=== PATIENT | female | born 1960 | race Caucasian/White ===

== ENCOUNTER 2016-06-21 11:45 | Observation (INO) | payer OTHER ==
[2016-06-21 12:08] VITALS: BMI 24.4
[2016-06-21] MEDS ORDERED: ACETAMINOPHEN 1000 MG/100 ML VIAL (NON FORMULARY) IVPB ONE (13:23)
--- NOTE | 2016-06-21 13:28 | PDOC ---
History of Present Illness - General History Source: Patient, Old Records Exam Limitations: No Limitations - History of Present Illness Initial Comments: 06/21/16 15:32 The patient is a 56 year old female brought via EMS, with a significant past medical history of epilepsy, HLD and gastritis, who presents to the emergency department after a witnessed seizure today. She states that she had a seizure this morning and went to see her Neurologist. While at the office she had another seizure which was witnessed. She was sent in for evaluation via EMS. On presentation the patient has post-itcal signs and complaints of headache and chest pain. She describes her headache as ranging from moderate to severe, without radiation or modifying factors. She describes her chest pain as mild, without radiation or modifying factors. She notes that one her of medications was recently increased but does not remember the name of the medication. She denies recent prior head injury. The patient denies shortness of breath and dizziness. Denies fever, chills, nausea, vomit, diarrhea and constipation. Allergies: None Past surgical history: None reported Social history: No alcohol, tobacco or drug use reported PMD - Dr. Eden Quiroz Neurologist - Dr. Roa <Andrew Solis - Last Filed: 06/21/16 16:08> <Dayna Howard - Last Filed: 06/22/16 09:06> - General Chief Complaint: Seizure Stated Complaint: SEIZURE Time Seen by Provider: 06/21/16 13:06 Past History <Andrew Solis - Last Filed: 06/21/16 16:08> - Past Medical History Anemia: No Asthma: No Cancer: No Cardiac Disorders: No CVA: No COPD: No CHF: No Dementia: No Diabetes: No GI Disorders: Yes (GASTRITIS) Disorders: No HTN: No Hypercholesterolemia: Yes Liver Disease: No Suicide Attempt (Hx): No Seizures: Yes (EPILEPSY; seizures 3 x per week; compliant on meds) Thyroid Disease: No - Immunization History Immunization Up to Date: Yes - Psycho/Social/Smoking Cessation Hx Anxiety: Yes Suicidal Ideation: No Smoking Status: No Smoking History: Unknown if ever smoked Have you smoked in the past 12 months: No Number of Cigarettes Smoked Daily: 0 Information on smoking cessation initiated: No Hx Alcohol Use: No Drug/Substance Use Hx: No Substance Use Type: None <Dayna Howard - Last Filed: 06/22/16 09:06> - Past Medical History Allergies/Adverse Reactions: Allergies Allergy/AdvReac Type Severity Reaction Status Date / Time No Known Allergies Allergy Verified 06/21/16 12:02 Home Medications: Ambulatory Orders Omeprazole [Prilosec] 40 mg PO DAILY 01/31/15 Simvastatin 10 mg PO HS 01/31/15 Levetiracetam [Keppra -] 1,500 mg PO BID #60 tablet 02/05/15 Oxcarbazepine [Trileptal -] 150 mg PO BID #60 tablet 02/05/15 Topiramate [Topamax] 150 mg PO BID #60 tablet 02/05/15 Oxycodone HCl/Acetaminophen [Percocet 5-325 mg Tablet] 1 tab PO Q6H PRN #10 tablet MDD 4 05/30/15 Lamotrigine [Lamictal] 200 mg PO BID 06/21/16 Review of Systems - Review of Systems Able to Perform ROS?: Yes Comments:: 06/21/16 13:30 12 point review of systems is as per history of present illness and otherwise negative ROS All Other Systems: Reviewed and Negative <Andrew Solis - Last Filed: 06/21/16 16:08> *Physical Exam - Vital Signs Last Vital Signs Temp Pulse Resp BP Pulse Ox 98.3 F 72 18 132/79 97 06/21/16 12:53 06/21/16 12:53 06/21/16 12:53 06/21/16 12:53 06/21/16 12:53 <Andrew Solis - Last Filed: 06/21/16 16:08> - Vital Signs Last Vital Signs Temp Pulse Resp BP Pulse Ox 98.3 F 72 18 132/79 97 06/21/16 12:53 06/21/16 12:53 06/21/16 12:53 06/21/16 12:53 06/21/16 12:53 - Physical Exam Comments: 06/21/16 13:24 Physical exam Last Vital Signs Temp Pulse Resp BP Pulse Ox 98.3 F 72 18 132/79 97 06/21/16 12:53 06/21/16 12:53 06/21/16 12:53 06/21/16 12:53 06/21/16 12:53 GENERAL: The patient is awake, alert, and answering questions Seems still a little post ictal HEAD: Normal with no signs of trauma. EYES: Pupils equal, round and reactive to light, extraocular movements intact, sclera anicteric, conjunctiva are normal. ENT: Moist mucous membranes. NECK: Normal range of motion, supple LUNGS: Breath sounds equal, clear to auscultation bilaterally. No wheezes, and no crackles. HEART: Regular rate and rhythm, normal S1 and S2 without murmur, rub or gallop. ABDOMEN: Soft, nontender, normoactive bowel sounds. No guarding, no rebound. No masses appreciated. EXTREMITIES: Normal range of motion, no edema. No clubbing or cyanosis. No cords, erythema, or tenderness. NEUROLOGICAL: Subtle facial asymmetry is noted, but otherwise cranial nerves seem intact Motor is equal in the upper and lower extremities, Patient seems still a little post ictal PSYCH: Normal mood, normal affect. SKIN: Warm, Dry, <Dayna Howard - Last Filed: 06/22/16 09:06> ED Treatment Course - LABORATORY CBC & Chemistry Diagram: 06/21/16 15:25 06/21/16 13:30 - RADIOLOGY Radiograph Interpretation: 06/21/16 14:46 Chest X-Ray Reviewed by: Dr. Clint Lopez Impression: No acute pathology Head CT Reviewed by: Dr. Corby Mahmood Impression: No significant interval change or acute intracranial pathology is identified. <Andrew Solis - Last Filed: 06/21/16 16:08> - LABORATORY CBC & Chemistry Diagram: 06/22/16 05:35 06/22/16 05:35 - RADIOLOGY Radiology Studies Ordered: Category Date Time Status HEAD CT WITHOUT CONTRAST [CT] Stat CT Scan 06/21/16 13:22 Ordered CHEST X-RAY PORTABLE* [RAD] Stat Radiology 06/21/16 13:22 Ordered <Dayna Howard - Last Filed: 06/22/16 09:06> Medical Decision Making - Medical Decision Making 06/21/16 16:26 Laboratory Results - last 24 hr 06/21/16 06/21/16 06/21/16 13:30 13:30 15:25 WBC Cancelled 4.9 Corrected WBC (auto) Cancelled RBC Cancelled 4.34 Hgb Cancelled 13.4 Hct Cancelled 40.4 MCV Cancelled 93.1 MCHC Cancelled 33.1 RDW Cancelled 13.4 Plt Count Cancelled 157 D MPV Cancelled 9.2 Neutrophils % 38.3 L D Lymphocytes % 47.4 H D Monocytes % 11.2 H Eosinophils % 2.3 Basophils % 0.8 Differential Comment Cancelled Platelet Estimate Cancelled Platelet Comment Cancelled RBC Morphology Cancelled Sodium 141 Potassium 3.9 Chloride 105 Carbon Dioxide 22 Anion Gap 14 BUN 15 D Creatinine 0.7 Creat Clearance w eGFR > 60 Random Glucose 66 L D Calcium 8.8 Magnesium 2.5 H Total Bilirubin 0.3 AST 42 H D ALT 33 D Alkaline Phosphatase 118 H Troponin I < 0.02 Total Protein 7.[address] scan of the head without- NAD Chest x-ray- NAD 06/21/16 16:56 EKG Normal sinus rhythm 57, normal axis Normal AV and IV conduction time Normal EKG Case discussed with hospitalist-will place in observation Impression-seizures, chest pain episode Back to baseline at this time <Dayna Howard - Last Filed: 06/22/16 09:06> *DC/Admit/Observation/Transfer - Attestations Scribe Attestion: 06/21/16 13:30 Documentation prepared by Andrew Solis, acting as mobile paramedical examiner for Dayna Howard MD <Andrew Solis - Last Filed: 06/21/16 16:08> - Discharge Dispostion Admit: Yes <Dayna Howard - Last Filed: 06/22/16 09:06> Diagnosis at time of Disposition: Seizure disorder, Seizures, Chest pain
[2016-06-21] MEDS ORDERED: ACETAMINOPHEN INJECTION 100 ML IVPB ONE (13:34)
[2016-06-21 15:04] LABS: ALBUMIN 4.2 g/dl (3.4-5.0); ANION GAP 14 (8-16); BILIRUBIN,TOTAL 0.3 mg/dL (0.2-1.0); CALCIUM 8.8 mg/dL (8.5-10.1); CO2 22 mmol/L (21-32); CREATININE 0.7 mg/dL (0.55-1.02); GLUCOSE,RANDOM 66 mg/dL (74-106); MAGNESIUM 2.5 mg/dL (1.8-2.4); SGPT/ALT 33 U/L (12-78); TOT PROT 7.7 g/dl (6.4-8.2)
[2016-06-21 15:06] LABS: ALK PHOS 118 U/L (45-117); TROPONIN I < 0.02 ng/ml (0.00-0.05)
[2016-06-21 15:19] LABS: SGOT/AST 42 U/L (15-37)
[2016-06-21 15:35] LABS: BASOPHIL 0.8 % (0-2.0); EOSINOPHIL 2.3 % (0-4.5); MCH 30.8 pg (25.7-33.7); MCHC 33.1 g/dl (32.0-36.0); MEAN CELL VOLUME 93.1 fl (80-96); MEAN PLT VOLUME 9.2 fl (7.5-11.1); NEUTROPHILS 38.3 % (42.8-82.8); PLATELET COUNT 157 K/MM3 (134-434); RDW 13.4 % (11.6-15.6); WHITE BLOOD COUNT 4.9 K/mm3 (4.0-10.0)
--- NOTE | 2016-06-21 17:25 | EKG ---
Test Reason : Blood Pressure : / mmHG Vent. Rate : 057 BPM Atrial Rate : 057 BPM P-R Int : 136 ms QRS Dur : 082 ms QT Int : 434 ms P-R-T Axes : 076 067 072 degrees QTc Int : 422 ms SINUS BRADYCARDIA OTHERWISE NORMAL ECG WHEN COMPARED WITH ECG OF 29-MAY-2015 21:34, NO SIGNIFICANT CHANGE WAS FOUND Confirmed by VALENCIA ESPINOSA MD ([id number]) on 06/21/2016 5:25:19 PM Referred By: Confirmed By:VALENCIA ESPINOSA MD
--- NOTE | 2016-06-21 17:48 | HP ---
CHIEF COMPLAINT: Convulsions today HISTORY OF PRESENT ILLNESS: Tanslation was done by the nurse in ED. The patient is a 56 year old ghanaian speaking female was brought via EMS, with a significant past medical history of epilepsy since her childhood, HLD and gastritis, who presents to the emergency department after having a witnessed seizure in her neurologist office today. Stated that she experiences seizure every other day 2-3 times per day . She was sent in for evaluation via EMS. Also stated that recently she has been having seizure post ictally she will develop chest pain and headache. She gets throbbing headache post-ictally. Denies having any aura. She also stated that she takes her meds religiously. The patient denies shortness of breath and dizziness. Denies fever, chills, nausea, vomit, diarrhea and constipation. Allergies: None Past surgical history: None reported Social history: No alcohol, tobacco or drug use reported PMD - Dr. Eden Quiroz Neurologist - Dr. Roa PCP: Eden Quiroz Family History: No family hx of any disease Allergies No Known Allergies Allergy HOME MEDICATIONS: Home Medications Medication Instructions Recorded Omeprazole [Prilosec] 40 mg PO DAILY 01/31/15 Simvastatin 10 mg PO HS 01/31/15 Levetiracetam [Keppra -] 1,500 mg PO BID #60 tablet 02/05/15 Oxcarbazepine [Trileptal -] 150 mg PO BID #60 tablet 02/05/15 Topiramate [Topamax] 150 mg PO BID #60 tablet 02/05/15 Oxycodone HCl/Acetaminophen 1 tab PO Q6H PRN #10 tablet MDD 4 05/30/15 [Percocet 5-325 mg Tablet] Acetaminophen [Tylenol] 650 mg PO Q4H PRN #20 tablet 03/18/16 Mag Hydrox/Al Hydrox/Simeth 30 ml PO Q6H PRN #1 bottle 03/18/16 [Mylanta Suspension -] Ondansetron HCl [Zofran] 4 mg PO Q6H PRN #12 tablet 03/18/16 Ranitidine HCl [Zantac] 150 mg PO BID PRN #14 tablet 03/18/16 REVIEW OF SYSTEMS CONSTITUTIONAL: Absent: fever, chills, diaphoresis, generalized weakness, malaise, loss of appetite, weight change HEENT: Absent: rhinorrhea, nasal congestion, throat pain, throat swelling, difficulty swallowing, mouth swelling, ear pain, eye pain, visual changes CARDIOVASCULAR: Absent: chest pain, syncope, palpitations, irregular heart rate , lightheadedness, peripheral edema RESPIRATORY: Absent: cough, shortness of breath, dyspnea with exertion, orthopnea, wheezing, stridor, hemoptysis GASTROINTESTINAL:Absent: abdominal pain, abdominal distension, nausea, vomiting , diarrhea, constipation, melena, hematochezia GENITOURINARY: Absent: dysuria, frequency, urgency, hesitancy, hematuria, flank pain, genital pain MUSCULOSKELETAL: Absent: myalgia, arthralgia, joint swelling, back pain, neck pain SKIN: Absent: rash, itching, pallor HEMATOLOGIC/IMMUNOLOGIC: Absent: easy bleeding, easy bruising, lymphadenopathy, frequent infections ENDOCRINE:Absent: unexplained weight gain, unexplained weight loss, heat intolerance, cold intolerance NEUROLOGIC: Absent: headache, focal weakness or paresthesias, dizziness, unsteady gait, seizure, mental status changes, bladder or bowel incontinence PSYCHIATRIC: Absent: anxiety, depression, suicidal or homicidal ideation, hallucinations. PHYSICAL EXAMINATION GENERAL: Awake, alert, and fully oriented, in no acute distress. HEAD: Normal with no signs of trauma. EYES: Pupils equal, round and reactive to light, extraocular movements intact, sclera anicteric, conjunctiva clear. No lid lag. EARS, NOSE, THROAT: Ears normal, nares patent, oropharynx clear without exudates. Moist mucous membranes. NECK: Normal range of motion, supple without lymphadenopathy, JVD, or masses. LUNGS: Breath sounds equal, clear to auscultation bilaterally. No wheezes, and no crackles. No accessory muscle use. HEART: Regular rate and rhythm, normal S1 and S2 without murmur, rub or gallop. ABDOMEN: Soft, nontender, not distended, normoactive bowel sounds, no guarding, no rebound, no masses. No hepatomegaly or splenomegaly. MUSCULOSKELETAL: Normal range of motion at all joints. No bony deformities or tenderness. No CVA tenderness. UPPER EXTREMITIES: 2+ pulses, warm, well-perfused. No cyanosis. No clubbing. No peripheral edema. LOWER EXTREMITIES: 2+ pulses, warm, well-perfused. No calf tenderness. No peripheral edema. NEUROLOGICAL: Cranial nerves II-XII intact. Normal speech. Normal gait. PSYCHIATRIC: Cooperative. Good eye contact. Appropriate mood and affect. SKIN: Warm, dry, normal turgor, no rashes or lesions noted, normal capillary refill. CBCD WBC 4.9 K/mm3 (4.0-10.0) 06/21/16 15:25 RBC 4.34 M/mm3 (3.60-5.2) 06/21/16 15:25 Hgb 13.4 GM/dL (10.7-15.3) 06/21/16 15:25 Hct 40.4 % (32.4-45.2) 06/21/16 15:25 MCV 93.1 fl (80-96) 06/21/16 15:25 MCHC 33.1 g/dl (32.0-36.0) 06/21/16 15:25 RDW 13.4 % (11.6-15.6) 06/21/16 15:25 Plt Count 157 K/MM3 (134-434) D 06/21/16 15:25 MPV 9.2 fl (7.5-11.1) 06/21/16 15:25 CMP Sodium 141 mmol/L (136-145) 06/21/16 13:30 Potassium 3.9 mmol/L (3.5-5.1) 06/21/16 13:30 Chloride 105 mmol/L (98-107) 06/21/16 13:30 Carbon Dioxide 22 mmol/L (21-32) 06/21/16 13:30 Anion Gap 14 (8-16) 06/21/16 13:30 BUN 15 mg/dL (7-18) D 06/21/16 13:30 Creatinine 0.7 mg/dL (0.55-1.02) 06/21/16 13:30 Creat Clearance w eGFR > 60 (>60) 06/21/16 13:30 Random Glucose 66 mg/dL (74-106) L D 06/21/16 13:30 Calcium 8.8 mg/dL (8.5-10.1) 06/21/16 13:30 Total Bilirubin 0.3 mg/dL (0.2-1.0) 06/21/16 13:30 AST 42 U/L (15-37) H D 06/21/16 13:30 ALT 33 U/L (12-78) D 06/21/16 13:30 Alkaline Phosphatase 118 U/L (45-117) H 06/21/16 13:30 Total Protein 7.7 g/dl (6.4-8.2) 06/21/16 13:30 Albumin 4.2 g/dl (3.4-5.0) 06/21/16 13:30 CARDIAC ENZYMES Creatine Kinase 142 IU/L (26-192) 06/21/16 13:30 Troponin I < 0.02 ng/ml (0.00-0.05) 06/21/16 13:30 Home Medications Medication Instructions Recorded Omeprazole [Prilosec] 40 mg PO DAILY 01/31/15 Simvastatin 10 mg PO HS 01/31/15 Levetiracetam [Keppra -] 1,500 mg PO BID #60 tablet 02/05/15 Oxcarbazepine [Trileptal -] 150 mg PO BID #60 tablet 02/05/15 Topiramate [Topamax] 150 mg PO BID #60 tablet 02/05/15 Oxycodone HCl/Acetaminophen 1 tab PO Q6H PRN #10 tablet MDD 4 05/30/15 [Percocet 5-325 mg Tablet] Acetaminophen [Tylenol] 650 mg PO Q4H PRN #20 tablet 03/18/16 Mag Hydrox/Al Hydrox/Simeth 30 ml PO Q6H PRN #1 bottle 03/18/16 [Mylanta Suspension -] Ondansetron HCl [Zofran] 4 mg PO Q6H PRN #12 tablet 03/18/16 Ranitidine HCl [Zantac] 150 mg PO BID PRN #14 tablet 03/18/16 Abnormal Lab Results 06/21/16 06/21/16 13:30 15:25 Neutrophils % 38.3 L D Lymphocytes % 47.4 H D Monocytes % 11.2 H Random Glucose 66 L D Magnesium 2.5 H AST 42 H D Alkaline Phosphatase 118 H ASSESSMENT/PLAN: The patient is a 56 year old female brought via EMS, with a significant past medical history of epilepsy, HLD and gastritis, who presents to the emergency department after a witnessed seizure today #Acute seizure activity with hx of convulsions for consult continue her meds. Discussed with he thinks that this lady has a psuedoseizure and EEG can be doen as an outpatient since there is no one reading in the office. Increased the dose of Topimax to 20mg po bid. # Throbbing Headache tylenol prn # Chest pain ,EKG in am , CEq8, will place her in tele. # Hx of Gerd zantac po # hx of HLD DVT px: SCds while in bed Visit type - Emergency Visit Emergency Visit: Yes ED Registration Date: 06/21/16 Care time: The patient presented to the Emergency Department on the above date and was hospitalized for further evaluation of their emergent condition. - New Patient This patient is new to me today: Yes Date on this admission: 06/21/16 - Critical Care Critical Care patient: No
[2016-06-21] MEDS ORDERED: RANITIDINE HCL 150 MG TABLET (FP) PO PRN (19:22)
[2016-06-21] MEDS: lamoTRIgine 100 MG TABLET (FP) PO SCH (21:46)
[2016-06-21] MEDS: OXcarbazepine 150 MG TABLET (UD) PO SCH (21:46)
[2016-06-21] MEDS: levETIRAcetam 500 MG TABLET (FP) PO SCH (21:46)
[2016-06-21] MEDS: TOPIRAMATE 200 MG TABLET (FP) PO SCH (21:46)
[2016-06-21] MEDS ORDERED: TOPIRAMATE 150 MG PO SCH (22:00)
[2016-06-22 06:48] LABS: BASOPHIL 0.8 % (0-2.0); EOSINOPHIL 2.8 % (0-4.5); MCH 30.7 pg (25.7-33.7); MCHC 32.9 g/dl (32.0-36.0); MEAN CELL VOLUME 93.3 fl (80-96); MEAN PLT VOLUME 9.5 fl (7.5-11.1); NEUTROPHILS 43.2 % (42.8-82.8); PLATELET COUNT 158 K/MM3 (134-434); RDW 13.5 % (11.6-15.6); WHITE BLOOD COUNT 4.7 K/mm3 (4.0-10.0)
[2016-06-22 06:49] LABS: INR 1.04 (0.82-1.09); PROTHROMBIN TIME (PATIENT) 11.4 SEC (9.98-11.88)
[2016-06-22 07:04] LABS: ALBUMIN 3.7 g/dl (3.4-5.0); ANION GAP 10 (8-16); BILIRUBIN,TOTAL 0.5 mg/dL (0.2-1.0); CO2 25 mmol/L (21-32); CREATININE 0.8 mg/dL (0.55-1.02); GLUCOSE,RANDOM 74 mg/dL (74-106); MAGNESIUM 2.4 mg/dL (1.8-2.4); PHOSPHOROUS 4.7 mg/dL (2.5-4.9); SGOT/AST 27 U/L (15-37); SGPT/ALT 28 U/L (12-78); TOT PROT 6.8 g/dl (6.4-8.2)
[2016-06-22 07:05] LABS: ALK PHOS 103 U/L (45-117)
[2016-06-22] MEDS ORDERED: PT OWN MED DRAWER 7, Y5N ONE (09:07)
--- NOTE | 2016-06-22 10:02 | CONSULT ---
Consult - text type - Consultation Consultation Note: Neurology The patient is a 56 year old female brought via EMS, with a significant past medical history of epilepsy, HLD and gastritis, who presents to the emergency department after a witnessed seizure yesterday. The patient sees Dr. Garcia and reportedly had seizure while at the office. The patient has challenges with medication compliance and also mood disturbances. She states that no medications ever work for her despite being on four antiepileptics. Today, she reports being at baseline. No events overnight. Her topamax was increased to 200mg twice daily from 150mg twice a day. She had recent VEEG I believe. She would like to be discharged. We discussed importance of medication compliance as well as address mood symptoms. Active Medications Lamotrigine (Lamictal -) 200 mg PO BID [facility] Last Admin: 06/21/16 21:46 Dose: 200 mg Levetiracetam (Keppra -) 1,500 mg PO BID [facility] Last Admin: 06/21/16 21:46 Dose: 1,500 mg Oxcarbazepine (Trileptal -) 150 mg PO BID [facility] Last Admin: 06/21/16 21:46 Dose: 150 mg Ranitidine HCl (Zantac -) 150 mg PO BID PRN PRN Reason: Gastritis Topiramate (Topamax -) 200 mg PO BID [facility] Last Admin: 06/21/16 21:46 Dose: 200 mg *Physical Exam Vital Signs Temperature 97.7 F 06/22/16 06:00 Pulse Rate 68 06/22/16 06:00 Respiratory Rate 20 06/22/16 06:00 Blood Pressure 99/59 06/22/16 06:00 O2 Sat by Pulse Oximetry (%) 98 06/22/16 04:00 GENERAL: The patient is awake, alert, and answering questions Seems still a little post ictal HEAD: Normal with no signs of trauma. EYES: Pupils equal, round and reactive to light, extraocular movements intact, sclera anicteric, conjunctiva are normal. ENT: Moist mucous membranes. NECK: Normal range of motion, supple LUNGS: Breath sounds equal, clear to auscultation bilaterally. No wheezes, and no crackles. HEART: Regular rate and rhythm, normal S1 and S2 without murmur, rub or gallop. ABDOMEN: Soft, nontender, normoactive bowel sounds. No guarding, no rebound. No masses appreciated. EXTREMITIES: Normal range of motion, no edema. No clubbing or cyanosis. No cords, erythema, or tenderness. NEUROLOGICAL: Cranial nerves intact Motor is equal in the upper and lower extremities, Patient seems still a little post ictal PSYCH: Normal mood, normal affect. Chest X-Ray Reviewed by: Dr. Clint Lopez Impression: No acute pathology Head CT Reviewed by: Dr. Corby Mahmood Impression: No significant interval change or acute intracranial pathology is identified. CBC,CMP WBC 4.7 K/mm3 (4.0-10.0) 06/22/16 05:35 Corrected WBC (auto) Cancelled 06/21/16 13:30 RBC 4.43 M/mm3 (3.60-5.2) 06/22/16 05:35 Hgb 13.6 GM/dL (10.7-15.3) 06/22/16 05:35 Hct 41.3 % (32.4-45.2) 06/22/16 05:35 MCV 93.3 fl (80-96) 06/22/16 05:35 MCHC 32.9 g/dl (32.0-36.0) 06/22/16 05:35 RDW 13.5 % (11.6-15.6) 06/22/16 05:35 Plt Count 158 K/MM3 (134-434) 06/22/16 05:35 MPV 9.5 fl (7.5-11.1) 06/22/16 05:35 Neutrophils % 43.2 % (42.8-82.8) 06/22/16 05:35 Lymphocytes % 42.3 % (8-40) H 06/22/16 05:35 Monocytes % 10.9 % (3.8-10.2) H 06/22/16 05:35 Eosinophils % 2.8 % (0-4.5) 06/22/16 05:35 Basophils % 0.8 % (0-2.0) 06/22/16 05:35 Differential Comment Cancelled 06/21/16 13:30 Platelet Estimate Cancelled 06/21/16 13:30 Platelet Comment Cancelled 06/21/16 13:30 Platelet Comment Cancelled 06/21/16 13:30 RBC Morphology Cancelled 06/21/16 13:30 Sodium 142 mmol/L (136-145) 06/22/16 05:35 Potassium 3.6 mmol/L (3.5-5.1) 06/22/16 05:35 Chloride 107 mmol/L (98-107) 06/22/16 05:35 Carbon Dioxide 25 mmol/L (21-32) 06/22/16 05:35 Anion Gap 10 (8-16) 06/22/16 05:35 BUN 13 mg/dL (7-18) 06/22/16 05:35 Creatinine 0.8 mg/dL (0.55-1.02) 06/22/16 05:35 Creat Clearance w eGFR > 60 (>60) 06/22/16 05:35 Random Glucose 74 mg/dL (74-106) 06/22/16 05:35 Calcium 9.0 mg/dL (8.5-10.1) 06/22/16 05:35 Phosphorus 4.7 mg/dL (2.5-4.9) D 06/22/16 05:35 Magnesium 2.4 mg/dL (1.8-2.4) 06/22/16 05:35 Total Bilirubin 0.5 mg/dL (0.2-1.0) D 06/22/16 05:35 AST 27 U/L (15-37) D 06/22/16 05:35 ALT 28 U/L (12-78) 06/22/16 05:35 Alkaline Phosphatase 103 U/L (45-117) 06/22/16 05:35 Creatine Kinase 142 IU/L (26-192) 06/21/16 13:30 Troponin I < 0.02 ng/ml (0.00-0.05) 06/22/16 02:00 Total Protein 6.8 g/dl (6.4-8.2) 06/22/16 05:35 Albumin 3.7 g/dl (3.4-5.0) 06/22/16 05:35 Medical Decision Making 56 year old female brought via EMS, with a significant past medical history of epilepsy, HLD and gastritis, who presents to the emergency department after a witnessed seizure yesterday. The patient sees Dr. Garcia and reportedly had seizure while at the office. The patient has challenges with medication compliance and also mood disturbances. She states that no medications ever work for her despite being on four antiepileptics. Today, she reports being at baseline. No events overnight. Her topamax was increased to 200mg twice daily from 150mg twice a day. She had recent VEEG I believe. She would like to be discharged. We discussed importance of medication compliance as well as address mood symptoms. Neurologically stable overnight and today. Seizure precautions and medication compliance discussed. For discharge today.
[2016-06-22] MEDS: TOPIRAMATE 200 MG TABLET (FP) PO SCH (10:36)
[2016-06-22] MEDS: OXcarbazepine 150 MG TABLET (UD) PO SCH (10:36)
[2016-06-22] MEDS: levETIRAcetam 500 MG TABLET (FP) PO SCH (10:37)
[2016-06-22] MEDS: lamoTRIgine 100 MG TABLET (FP) PO SCH (10:37)
[2016-06-22 13:22] VITALS: BP 123/70; PULSE 92; TEMP 98
--- NOTE | 2016-06-22 14:17 | PN ---
Teaching Attending Note Name of Resident: Ankit Pearce ATTENDING PHYSICIAN STATEMENT I saw and evaluated the patient. I reviewed the resident's note and discussed the case with the resident. I agree with the resident's findings and plan as documented. SUBJECTIVE: No fever or chills, feels tired, no weakness or numbness , wants to go home as we are not doing anything to help her. OBJECTIVE: NAD. LUngs : CTAB ext : no edema CV: RRR. no MRG Neuro : EOMI, no facial droop, nl facial sensation . strength 4/5 in upper ext , and LLE . not able to obtain strength on RLE due to pain ( chronic back and knee pain ) . reflexes 2+ L knee jerk, and 2+ biceps b/l ASSESSMENT AND PLAN: 56 y/o lady with h.o Seizures who presented after a seizure activity in neurologist office . 1- seizure disorder, not compliant with her meds cont increased topiramate dose cont rest of her home meds 2- dc home today f/u with neuro and PCP
--- NOTE | 2016-06-22 14:25 | DS ---
Physical Exam: SUBJECTIVE: Patient seen and examined at bedside wants to go home OBJECTIVE: Vital Signs Period Temp Pulse Resp BP Sys/Rabago Pulse Ox Last 24 Hr 97.7 F-98.5 F 60-92 17-20 95-123/57-76 98-100 PHYSICAL EXAM GENERAL: The patient is awake, alert, in no acute distress. HEAD: Normal with no signs of trauma. Eyes: PERRLA EOMI NECK: Supple LUNGS: Breath sounds equal, clear to auscultation bilaterally. HEART: Regular rate and rhythm, S1, S2 without murmur, ABDOMEN: Soft, nontender, nondistended, normoactive bowel sounds EXTREMITIES: warm, well-perfused, no edema. NEUROLOGICAL: Cranial nerves II through XII grossly intact. Normal speech. no facial droop sensation WNL 4/5 strength in upper extremities 5/5 strength in lower extremities biceps and knee jerk 2+ LABS Laboratory Results - last 24 hr 06/21/16 06/22/16 06/22/16 21:00 02:00 05:35 WBC 4.7 RBC 4.43 Hgb 13.6 Hct 41.3 MCV 93.3 MCHC 32.9 RDW 13.5 Plt Count 158 MPV 9.5 Neutrophils % 43.2 Lymphocytes % 42.3 H Monocytes % 10.9 H Eosinophils % 2.8 Basophils % 0.8 INR Sodium Potassium Chloride Carbon Dioxide Anion Gap BUN Creatinine Creat Clearance w eGFR Random Glucose Calcium Phosphorus Magnesium Total Bilirubin AST ALT Alkaline Phosphatase Troponin I < 0.02 < 0.02 Total Protein Albumin 06/22/16 06/22/16 05:35 05:35 WBC RBC Hgb Hct MCV MCHC RDW Plt Count MPV Neutrophils % Lymphocytes % Monocytes % Eosinophils % Basophils % INR 1.04 Sodium 142 Potassium 3.6 Chloride 107 Carbon Dioxide 25 Anion Gap 10 BUN 13 Creatinine 0.8 Creat Clearance w eGFR > 60 Random Glucose 74 Calcium 9.0 Phosphorus 4.7 D Magnesium 2.4 Total Bilirubin 0.5 D AST 27 D ALT 28 Alkaline Phosphatase 103 Troponin I Total Protein 6.8 Albumin 3.7 HOSPITAL COURSE: Date of Admission:06/21/16 Date of Discharge: 06/22/16 56F with history of seizure disorder presented to her neurologists office after having a seizure at home and them went to the to the ED after having a seizure at the neurologists office as well. Patient was worked up with a head CT and cardiac enzymes which were all negative. She did not have any neurological deficits. Seen by neurology and medications adjusted. Cleared by neurology for discharge with follow up. Minutes to complete discharge: 45 Discharge Summary Reason For Visit: SEIZURE DISORDER/SEIZURE/CHEST PAIN Condition: Improved - Instructions Diet, Activity, Other Instructions: follow with [facility] in week please follow with Dr. ferguson , from neurology. report any new symptoms like weakens, numbness , loss of consciousness or seizures to your doctor follow the new dosing of your medications ( topamax dose was increased to 200 mg twice a day instead of 150 mg twice a day ) , new prescription was sent to your pharmacy Referrals: Jono Ferguson MD [Staff Physician] - 1 Week Disposition: HOME - Home Medications Comprehensive Discharge Medication List: Ambulatory Orders Omeprazole [Prilosec] 40 mg PO DAILY 01/31/15 Simvastatin 10 mg PO HS 01/31/15 Levetiracetam [Keppra -] 1,500 mg PO BID #60 tablet 02/05/15 Oxcarbazepine [Trileptal -] 150 mg PO BID #60 tablet 02/05/15 Oxycodone HCl/Acetaminophen [Percocet 5-325 mg Tablet] 1 tab PO Q6H PRN #10 tablet MDD 4 05/30/15 Lamotrigine [Lamictal] 200 mg PO BID 06/21/16 Topiramate 200 mg PO BID #120 tablet 06/22/16 This patient is new to me today: Yes Date on this admission: 06/22/16 Emergency Visit: Yes ED Registration Date: 06/21/16 Care time: The patient presented to the Emergency Department on the above date and was hospitalized for further evaluation of their emergent condition. Critical Care patient: No - Discharge Referral Referred to [facility] Med P.C.: No
== END 2016-06-22 13:22 | disposition home or self-care (01) ==
LOC: JER 11:45 → JERBED 16:57 → J4S 20:54
PROVIDERS: ADMIT Internal Medicine; ATTEND Internal Medicine
PROC: 3E033GC Introduction of Other Therapeutic Substance into Peripheral Vein, Percutaneous Approach (ICD-10-PCS; principal; 2016-06-21)
DX: G40.109 Localization-related (focal) (partial) symptomatic epilepsy and epileptic syndromes with simple partial seizures, not intractable, without status epilepticus (principal); E78.5 Hyperlipidemia, unspecified; F41.9 Anxiety disorder, unspecified; Z91.14 Patient's other noncompliance with medication regimen; Z87.19 Personal history of other diseases of the digestive system
CPT/HCPCS: 36415; 70450-TC; 71010-TC; 80053; 82550; 83735; 84100; 84484; 85025; 85610; 93005; 93010; 99285-25; G0378

== ENCOUNTER 2018-11-24 13:08 | Emergency (ER) | payer OTHER ==
[2018-11-24] MEDS ORDERED: SODIUM CHLORIDE 1,000 ML IV SCH (13:30)
[2018-11-24 13:32] VITALS: BMI 23.4
[2018-11-24 13:38] LABS: BASO % 1.6 % (0-2.0); EOS % 2.4 % (0-4.5); HEMOGLOBIN 14.2 GM/dL (10.7-15.3); LYMPH % 42.1 % (8-40); MCH 30.6 pg (25.7-33.7); MCHC 33.1 g/dl (32.0-36.0); MEAN CELL VOLUME 92.5 fl (80-96); MEAN PLT VOLUME 8.2 fl (7.5-11.1); MONO % 12.4 % (3.8-10.2); NEUT % 41.5 % (42.8-82.8); PLATELET COUNT 215 K/MM3 (134-434); RBC 4.65 M/mm3 (3.60-5.2); RDW 13.4 % (11.6-15.6); WHITE BLOOD COUNT 4.8 K/mm3 (4.0-10.0)
--- NOTE | 2018-11-24 13:41 | PDOC ---
Attending Attestation - Resident Resident Name: Celio Diana - ED Attending Attestation I have performed the following: I have examined & evaluated the patient, The case was reviewed & discussed with the resident, I agree w/resident's findings & plan, Exceptions are as noted - HPI HPI: 58 yo F history pseudoseizure, mood disorder, seizure disorder, headaches presents with AMS. Pt called EMS for headache, on their arrival she was speaking full sentences, but her speech became more stuttering while they evaluated her. Denies weakness, numbness. She has history of poor adherence to med regimen per notes from Dr. Salazar. She has had similar symptoms in the past. - Physicial Exam PE: GENERAL: Awake, alert, and fully oriented, in no acute distress HEAD: No signs of trauma EYES: PERRLA, EOMI, sclera anicteric, conjunctiva clear ENT: Auricles normal inspection, hearing grossly normal, nares patent, oropharynx clear without exudates. Moist mucosa NECK: Normal ROM, supple, no lymphadenopathy, JVD, or masses LUNGS: Breath sounds equal, clear to auscultation bilaterally. No wheezes, and no crackles HEART: Regular rate and rhythm, normal S1 and S2, no murmurs, rubs or gallops ABDOMEN: Soft, nontender, normoactive bowel sounds. No guarding, no rebound. No masses EXTREMITIES: Normal range of motion, no edema. No clubbing or cyanosis. No cords, erythema, or tenderness NEUROLOGICAL: Cranial nerves II through XII grossly intact. Stuttering speech. Motor and sensation intact SKIN: Warm, dry, normal turgor, no rashes or lesions noted. - Medical Decision Making Pt with odd affect. Initially presented as a possible CVA, but later became upset with staff for attempting to perform the NIHSS (and would not follow instructions initially). As she presented with AHMADI, it was concerning for poss ICH, as she had the speech changes and was not following commands. CTH showed no acute changes. When she returned from CT, she later stated she had similar symptoms in the past, this is not new. She was not able to explain why she was speaking in the stuttering speech, however, stated that she was able to understand everything that was said, and did not want to comply with NIHSS. Initial plan was to give a small dose of ativan for poss anxiety vs pseudoseizure, however, her symptoms improved before that. She later recovered to baseline, ambulating in the ED. Very low suspicion for TIA/CVA, as the symptoms are very atypical for stroke. DC home. NIH Stroke Scale - Last Known Well Date/Time & Onset Date Last Known Well: 11/24/18 - Initial Evaluation Level of consciousness: Alert Ask patient the month and their age: Answers both correctly Ask patient to open & close eyes; make fist and let go: Obeys both correctly Best gaze (horizontal eye movement): Normal Visual field testing: No visual field loss Facial paresis (Show teeth/raise eyebrows/close eyes tight): Normal symmetrical movement Motor Function: Left Arm: Normal Motor Function: Right Arm: Normal (extends arm 90 (or 45) degrees for 10 seconds without drift Motor Function: Left Leg: Normal (extends leg 30 degrees for 5 seconds without drift) Motor Function: Right Leg: Normal (extends leg 30 degrees for 5 seconds without drift) Limb Ataxia: No ataxia Sensory(Use pinprick test arms,legs,trunk,face/side to side): Normal Best language (Describe picture, name items, read sentences): No Aphasia Dysarthria (read several words): Normal articulation Extinction and Inattention: No abnormality - Total Score NIH Stroke Scale Score: 0
[2018-11-24 13:56] LABS: INR 0.95 (0.83-1.09); PROTHROMBIN TIME (PATIENT) 11.2 SEC (9.7-13.0)
[2018-11-24 13:58] VITALS: BP 135/72; PULSE 94; TEMP 97.4
[2018-11-24 14:04] LABS: ALBUMIN 4.2 g/dl (3.4-5.0); BILIRUBIN,TOTAL 0.4 mg/dL (0.2-1); BLOOD UREA NITROGEN 10.3 mg/dL (7-18); CALCIUM 9.3 mg/dL (8.5-10.1); CREATININE 0.8 mg/dL (0.55-1.3); TOT PROT 7.7 g/dl (6.4-8.2)
--- NOTE | 2018-11-24 14:04 | PDOC ---
History of Present Illness - General Chief Complaint: CVA/TIA Stated Complaint: R/O STROKE Time Seen by Provider: 11/24/18 13:16 - History of Present Illness Initial Comments: 11/24/18 13:57 58 yo F with h/o pseudoseizure, mood disorder, seizure disorder, headache disorder who p/w altered mental status. Per EMS patient called for complaint of headache, and " weird sensation in head." Patient was conversant with EMS at approximately 1:00 PM and able to provide history. states that she has been adherent to med regimen. However on arrival to ED (1:30) PM, patient unable to provide history , poor historian, able to follow commands, but forming complete sentences intermittently. Patient endorsed headache to nurse this AM, but unable to further clarify. Endorses daily headaches. States that she has had these similar symptoms before. Last evaluation for similar presentation 07/04, with presumed pseudoseizure. Evaluated by Dr. Salazar at that time and medications adjusted. H/o VEEG and admissions for seizure with no witnessed seizure activity. Pt. on Lamotrigine, Levitiractem, Oxcarbazepine, Topirimate. Patient denies vision change, palpitations, cough, wheezing, orthopena, PND, leg swelling/pain, N/V, F,C, CP, SOB, urinary complaints, hematuria, BPR, abdominal pain, diarrhea, constipation, lightheadedness. PMHx: as noted above ROS: as noted SHx: Denies Etoh, IVDA, tobacco use Allergies: NKDA tPA Exclusion Checklist 0-3hr - Time Elapsed Date last known well: 11/24/18 Time last known well: 13:30 Elaspsed time: Day(s) and 2 Hour(s) and 22 Minutes - Thrombolytic Therapy Candidate Is the patient eligible for Thrombolytic Therapy?: No - Exclusion Criteria 0-3hr SBP greater than 185 or DBP greater than 110mmHg despite tx: No Recent IC/spinal surgery,head trauma or stroke w/in last 3mo: No Hx of previous IC hemorrhage, IC neoplasm, AVM or aneurysm: No Active internal bleeding: No Blding diathesis(low plt ct, inc PTT,INR>1.7 or use of NOAC): No Symptoms suggest subarachnoid hemorrhage: No CT demonstrates multilobar infarct(>1/3 cerebral hemiphere): No Arterial puncture at noncompressible site in previous 7 days: No Blood glucose concentration less than 50mg/dL (2.7mmol/L): No - Relative Exclusion Criteria 0-3h Life expectancy <1yr/severe co-morbid illness/[employer] on admit: No : No Patient/family refused: No Rapid improvement: No Stroke severity too mild: Yes Recent acute RI (w/in previous 3 months): No Seizure at onset with postictal residual neuro impairments: Yes Major surgery or serious trauma w/in previous 14 days: No Recent GI or hemorrhage (w/in previous 21 days): No - Ineligibility reason(s) Reasons No tPA given: See reason(s) noted above NIH Stroke Scale - Last Known Well Date/Time & Onset Date Last Known Well: 11/24/18 Time Last Known Well: 13:30 - Initial Evaluation Level of consciousness: Alert Ask patient the month and their age: Both incorrect Ask patient to open & close eyes; make fist and let go: Obeys both correctly Best gaze (horizontal eye movement): Normal Visual field testing: No visual field loss Facial paresis (Show teeth/raise eyebrows/close eyes tight): Minor paralysis ( flattened nasolabial fold, asymmetry on smiling) Motor Function: Left Arm: Drift Motor Function: Right Arm: Drift Motor Function: Left Leg: No effort against gravity Motor Function: Right Leg: No effort against gravity Limb Ataxia: Present in two limbs Sensory(Use pinprick test arms,legs,trunk,face/side to side): Normal Best language (Describe picture, name items, read sentences): Mute Dysarthria (read several words): Near unintelligible or unable to speak Extinction and Inattention: No abnormality - Total Score NIH Stroke Scale Score: 18 Past History - Past Medical History Allergies/Adverse Reactions: Allergies Allergy/AdvReac Type Severity Reaction Status Date / Time No Known Allergies Allergy Verified 11/24/18 13:25 Home Medications: Ambulatory Orders Omeprazole [Prilosec] 40 mg PO DAILY 01/31/15 Simvastatin 10 mg PO HS 01/31/15 Oxcarbazepine [Trileptal -] 150 mg PO BID #60 tablet 02/05/15 levETIRAcetam [Keppra -] 1,500 mg PO BID #60 tablet 02/05/15 Oxycodone HCl/Acetaminophen [Percocet 5-325 mg Tablet] 1 tab PO Q6H PRN #10 tablet MDD 4 05/30/15 Lamotrigine [Lamictal] 200 mg PO BID 06/21/16 Topiramate 200 mg PO BID #120 tablet 06/22/16 Anemia: No Asthma: No Cancer: No Cardiac Disorders: No CVA: No COPD: No CHF: No Dementia: No Diabetes: No GI Disorders: Yes (GASTRITIS) Disorders: No HTN: No Hypercholesterolemia: Yes Liver Disease: No Seizures: Yes (EPILEPSY; seizures 3 x per week; compliant on meds) Thyroid Disease: No - Immunization History Immunization Up to Date: Yes - Suicide/Smoking/Psychosocial Hx Smoking Status: No Smoking History: Unknown if ever smoked Have you smoked in the past 12 months: No Number of Cigarettes Smoked Daily: 0 Hx Alcohol Use: No Drug/Substance Use Hx: No Substance Use Type: None Hx Substance Use Treatment: No Review of Systems - Review of Systems Comments:: 11/24/18 14:16 Unable to provide 13 point ROS inspection *Physical Exam - Vital Signs Last Vital Signs Temp Pulse Resp BP Pulse Ox 97.8 F 70 18 126/70 98 11/24/18 13:25 11/24/18 13:25 11/24/18 13:25 11/24/18 13:25 11/24/18 13:25 - Physical Exam Comments: 11/24/18 14:17 GENERAL: Awake, alert, partial verbal responses, partially able to follow commands. HEAD: + Facial grimacing, recurrent blinking. No signs of trauma, normocephalic , atraumatic EYES: PERRLA, EOMI, sclera anicteric, conjunctiva clear ENT: Auricles normal inspection, hearing grossly normal, nares patent, oropharynx clear without exudates. Moist mucosa NECK: Normal ROM, supple, no lymphadenopathy, JVD, or masses LUNGS: No distress, speaks full sentences, clear to auscultation bilaterally HEART: Regular rate and rhythm, normal S1 and S2, no murmurs, rubs or gallops, peripheral pulses normal and equal bilaterally. ABDOMEN: Soft, nontender, normoactive bowel sounds. No guarding, no rebound. No masses EXTREMITIES : Normal inspection, Normal range of motion, no edema. No clubbing or cyanosis NEUROLOGICAL: + BL UE tremulousness. Cranial nerves II through XII grossly intact. SKIN: Warm, Dry, normal turgor, no rashes or lesions noted ED Treatment Course - LABORATORY CBC & Chemistry Diagram: 11/24/18 13:20 11/24/18 13:24 - ADDITIONAL ORDERS Additional order review: Laboratory Results 11/24/18 13:20 PT with INR 11.20 INR 0.95 11/24/18 13:20 RBC 4.65 MCV 92.5 MCHC 33.1 RDW 13.4 MPV 8.2 D Neutrophils % 41.5 L Lymphocytes % 42.1 H Monocytes % 12.4 H Eosinophils % 2.4 Basophils % 1.6 Medical Decision Making - Medical Decision Making 11/24/18 14:20 58 yo F with h/o pseudoseizure, mood disorder, seizure disorder, headache disorder who p/w altered mental status. Vitals wnl, A&Ox1. BS~127. Patient with facial partial verbal responses, partially able to follow commands. Strength intact throughout. Will evaluate for CVA/TIA, status epilepticus, hypoglycemia, electrolyte abnml, metabolic and toxic derangements, acid-base disturbances. Ed Course: 11/24/18 14:23 CTH: No acute intracranial pathology 11/24/18 14:30 EKG: NSR with absent DAVID, STD. Nml interval duration and axis. Nml R wave progression. Absent Q waves. 11/24/18 15:49 Patient received 1 mg Ativan Patient ambulatory, A&Ox4, absent neuro deficits on exam Patient states that she gets spells where she "freezes, up and something comes over her." Denies illicit drug use/substance abuse 11/24/18 15:52 Patient not candidate for TpA, spontaneous resolution, symptoms consistent with prior episodes. stable for d/c with return precautions Advised to f/u neuro and PMD *DC/Admit/Observation/Transfer Diagnosis at time of Disposition: Altered mental status Qualifiers: Altered mental status type: unspecified Qualified Code(s): R41.82 - Altered mental status, unspecified - Discharge Dispostion Condition at time of disposition: Stable Decision to Admit order: Yes - Referrals - Patient Instructions Printed Discharge Instructions: DI for Altered Mental Status Additional Instructions: Please return to the emergency department with any new or worsening symptoms or concerns. Please follow up with your neurology primary care physician within 72 hours. - Post Discharge Activity
[2018-11-24] MEDS ORDERED: LORazepam 2 MG/ML SDV VIAL ONE (14:41)
[2018-11-24 16:16] LABS: URINE APPEARANCE CLEAR; URINE BILIRUBIN NEGATIVE (NEGATIVE); URINE COLOR YELLOW; URINE GLUCOSE (UA) NEGATIVE (NEGATIVE); URINE KETONE NEGATIVE (NEGATIVE); URINE LEUK ESTERASE TRACE (NEGATIVE); URINE NITRITE NEGATIVE (NEGATIVE); URINE PROTEIN NEGATIVE (NEGATIVE); URINE UROBILINOGEN 0.2 mg/dL (0.2-1.0)
[2018-11-24 16:33] LABS: EPI CELLS 0.9 /HPF (0-5/HPF); URINE BACTERIA 0.5 /hpf (NEGATIVE); URINE RBC 0.2 /hpf (0-4); URINE WBC 0.4 /hpf (0-5)
--- NOTE | 2018-11-25 16:53 | EKG ---
Test Reason : Blood Pressure : / mmHG Vent. Rate : 062 BPM Atrial Rate : 062 BPM P-R Int : 118 ms QRS Dur : 074 ms QT Int : 404 ms P-R-T Axes : 067 056 079 degrees QTc Int : 410 ms NORMAL SINUS RHYTHM NORMAL ECG WHEN COMPARED WITH ECG OF 21-JUN-2016 13:29, NO SIGNIFICANT CHANGE WAS FOUND Confirmed by DOMINIQUE BIRCH MD ([id number]) on 11/25/2018 4:52:55 PM Referred By: Confirmed By:DOMINIQUE BIRCH MD
== END 2018-11-24 16:23 | disposition home or self-care (01) ==
LOC: JER 13:08
PROC: 3E033NZ Introduction of Analgesics, Hypnotics, Sedatives into Peripheral Vein, Percutaneous Approach (ICD-10-PCS; principal; 2018-11-24)
PROC: 3E0337Z Introduction of Electrolytic and Water Balance Substance into Peripheral Vein, Percutaneous Approach (ICD-10-PCS; 2018-11-24)
DX: R41.82 Altered mental status, unspecified (principal); G40.909 Epilepsy, unspecified, not intractable, without status epilepticus; G44.89 Other headache syndrome; E78.00 Pure hypercholesterolemia, unspecified
CPT/HCPCS: 36415; 70450-TC; 80053; 80061; 81003; 82550; 82553; 83721; 84484; 85025; 85610; 93005; 93010; 96374; 99284-25; J7030

== ENCOUNTER 2024-07-11 04:43 | Observation (INO) | payer OTHER ==
[2024-07-11 05:14] LABS: HEMATOCRIT 42.4 % (34.1-44.9); HEMOGLOBIN 13.8 g/dL (11.2-15.7); MCHC 32.5 g/dl (32.2-35.5); MEAN PLT VOLUME 10.8 fl (9.4-12.3); PLATELET COUNT 182 x10^3/uL (182-369); RDW 13.7 % (12.4-16.4)
[2024-07-11 05:24] LABS: INR 0.95 (0.83-1.09); PROTHROMBIN TIME (PATIENT) 10.4 SEC (9.7-13.0)
[2024-07-11 05:35] LABS: POTASSIUM 3.4 mmol/L (3.5-5.1)
[2024-07-11 05:38] LABS: ALBUMIN 3.8 g/dl (3.4-5.0)
[2024-07-11 05:41] LABS: CREATININE 0.9 mg/dL (0.55-1.3)
[2024-07-11 05:42] LABS: BILIRUBIN,TOTAL 0.2 mg/dL (0.2-1)
[2024-07-11 05:43] LABS: TOT PROT 7.1 g/dl (6.4-8.2)
[2024-07-11] MEDS ORDERED: ACETAMINOPHEN INJECTION 100 ML ONE (06:56)
[2024-07-11] MEDS: SODIUM CHLORIDE 0.9% 500 ML INFUS.BAG IV ONE (06:58)
[2024-07-11] MEDS: ACETAMINOPHEN 1000 MG/100 ML BAG IVPB ONE (06:58)
[2024-07-11 09:41] LABS: URINE APPEARANCE CLEAR; URINE BILIRUBIN NEGATIVE (NEGATIVE); URINE COLOR YELLOW; URINE GLUCOSE (UA) NEGATIVE (NEGATIVE); URINE KETONE NEGATIVE (NEGATIVE); URINE LEUK ESTERASE NEGATIVE (NEGATIVE); URINE NITRITE NEGATIVE (NEGATIVE); URINE PROTEIN NEGATIVE (NEGATIVE); URINE UROBILINOGEN 0.2 mg/dL (0.2-1.0)
[2024-07-11] MEDS ORDERED: levETIRAcetam 500 MG/5 ML INJECTION VIAL IVPB ONE (09:53)
[2024-07-11] MEDS ORDERED: lamoTRIgine 100 MG TABLET ONE (09:54)
[2024-07-11] MEDS ORDERED: TOPIRAMATE 100 MG TABLET ONE (09:55)
[2024-07-11] MEDS: levETIRAcetam 500 MG/5 ML INJECTION VIAL IVPB ONE (10:21)
[2024-07-11] MEDS: OXcarbazepine 150 MG TABLET (UD) PO ONE (10:22)
[2024-07-11] MEDS: TOPIRAMATE 200 MG TABLET PO ONE (10:22)
[2024-07-11] MEDS: lamoTRIgine 100 MG TABLET PO ONE (10:41)
[2024-07-11] MEDS ORDERED: ENOXAPARIN NA (PORCINE) 40 MG/0.4 ML DISP.SYRIN SQ ONE (10:56)
[2024-07-11] MEDS: POTASSIUM CHLORIDE 40 MEQ in SODIUM CHLORIDE 1,000 ML IV SCH (11:13)
[2024-07-11 13:29] VITALS: RESP 18; BMI 27.6
[2024-07-11] MEDS: ACETAMINOPHEN 325 MG TABLET (FP) PO PRN (18:10)
[2024-07-11] MEDS ORDERED: ESLICARBAZEPINE ACETATE 800 MG PO SCH (22:00)
[2024-07-11] MEDS: risperiDONE 1 MG TABLET PO SCH (22:23)
[2024-07-11] MEDS: TOPIRAMATE 100 MG TABLET PO SCH ×2 (22:24→23:15)
[2024-07-11] MEDS: ATORVASTATIN CA 20 MG TABLET (FP) PO SCH (22:24)
[2024-07-11] MEDS: lamoTRIgine 100 MG TABLET PO SCH (22:24)
[2024-07-11] MEDS: cloBAZam 10 MG TABLET PO SCH (23:16)
[2024-07-12] MEDS: HALOPERIDOL LACTATE 5 MG/ML IM ONE (07:36)
[2024-07-12 09:10] LABS: ABSOLUTE IMMATURE GRANULOCYTES 0.02 x10^3/uL (0.0-0.031); BASOPHILS # 0.02 x10^3/uL (0.01-0.08); EOSINOPHIL % 4.5 % (0.7-5.8); HEMATOCRIT 43.2 % (34.1-44.9); HEMOGLOBIN 14.2 g/dL (11.2-15.7); MCHC 32.9 g/dl (32.2-35.5); MEAN CELL VOLUME 91.3 fl (79.4-94.8); MEAN PLT VOLUME 11.2 fl (9.4-12.3); MONOCYTE # 0.44 x10^3/uL (0.24-0.86); MONOCYTE % 9.8 % (4.7-12.5); PLATELET COUNT 196 x10^3/uL (182-369); RDW 13.7 % (12.4-16.4)
[2024-07-12 09:34] LABS: POTASSIUM 3.4 mmol/L (3.5-5.1)
[2024-07-12 09:42] LABS: CALCIUM 9.7 mg/dL (8.5-10.1)
[2024-07-12 09:43] LABS: ALBUMIN 3.9 g/dl (3.4-5.0)
[2024-07-12 09:46] LABS: CREATININE 0.9 mg/dL (0.55-1.3); PHOSPHOROUS 3.9 mg/dL (2.5-4.9)
[2024-07-12 09:47] LABS: TOT PROT 7.3 g/dl (6.4-8.2)
[2024-07-12 09:49] LABS: BILIRUBIN,TOTAL 0.4 mg/dL (0.2-1)
[2024-07-12] MEDS ORDERED: ESLICARBAZEPINE ACETATE 400 MG PO SCH (10:00)
[2024-07-12] MEDS ORDERED: TOPIRAMATE 25 MG TABLET PO SCH (10:00)
[2024-07-12] MEDS: ENOXAPARIN NA (PORCINE) 40 MG/0.4 ML DISP.SYRIN SQ SCH (10:29)
[2024-07-12] MEDS: lamoTRIgine 100 MG TABLET PO SCH (10:30)
[2024-07-12] MEDS: ESCITALOPRAM OXALATE 10 MG TABLET PO SCH (10:30)
[2024-07-12 10:39] VITALS: BP 116/72; PULSE 78; TEMP 97.5
[2024-07-12] MEDS: POTASSIUM CHLORIDE ORAL LIQUID 20 MEQ/15 ML PO ONE (12:18)
== END 2024-07-12 13:02 | disposition home or self-care (01) ==
LOC: JER 04:43 → INTOOBSV 10:37 → JERBED 10:37 → UNDOADMOB 10:37 → J5S 11:48 → JERBED 11:48 → J5S 14:19
PROVIDERS: ADMIT Student in an Organized Health Care Education/Training Program; ATTEND Physician Assistant
PROC: 3E033NZ Introduction of Analgesics, Hypnotics, Sedatives into Peripheral Vein, Percutaneous Approach (ICD-10-PCS; principal; 2024-07-11)
PROC: 3E023GC Introduction of Other Therapeutic Substance into Muscle, Percutaneous Approach (ICD-10-PCS; 2024-07-11)
PROC: 3E033GC Introduction of Other Therapeutic Substance into Peripheral Vein, Percutaneous Approach (ICD-10-PCS; 2024-07-11)
PROC: 3E0337Z Introduction of Electrolytic and Water Balance Substance into Peripheral Vein, Percutaneous Approach (ICD-10-PCS; 2024-07-11)
DX: R41.82 Altered mental status, unspecified (principal); G40.909 Epilepsy, unspecified, not intractable, without status epilepticus; F39 Unspecified mood [affective] disorder; E78.5 Hyperlipidemia, unspecified; E87.6 Hypokalemia
CPT/HCPCS: 36415; 70450-TC; 71045-TC-FY; 80053; 80061; 80177; 80307; 81003; 82550; 83036; 83735; 84100; 84484; 85025; 85610; 85730; 86850; 86900; 86901; 87086; 93005; 93010; 95816; 96372; 96374; 96375; 97116-GP; 97161-GP; 99285-25; G0378; J0131